=== PATIENT | female | born 1980 | race Caucasian/White ===

== ENCOUNTER 2017-08-08 11:05 | Day surgery (SDC) | payer MEDICAID ==
[~2017-08-08] VITALS: Ht 160 cm; Wt 96.2 kg
[~2017-08-08 11:05] MED LIST: ASPI81TA27 PO; METO25TA3 PO
[2017-08-08] MEDS ORDERED: LIDOCAINE VISCOUS 2% 15ML UD PO ONE (12:00)
[2017-08-08] MEDS ORDERED: diphenhdrAMINE HCL 50 MG/1 ML VL IV ONE (12:00)
[2017-08-08] MEDS ORDERED: fentaNYL CITRATE 100 MCG/2 ML VL IV ONE (12:00)
[2017-08-08] MEDS ORDERED: NALOXONE HCL 0.4 MG/ML VIAL IV ONE (12:00)
[2017-08-08] MEDS ORDERED: MIDAZOLAM HCL 1MG/1ML-2 ML VIAL IV ONE (12:00)
[2017-08-08] MEDS ORDERED: FLUMAZENIL 0.1 MG/ML INJ 10ML MDV IV ONE (12:00)
== END 2017-08-08 15:05 | disposition home or self-care (01) ==
LOC: CATH 11:05
PROVIDERS: ATTEND Internal Medicine
DX: I42.2 Other hypertrophic cardiomyopathy (principal); I34.0 Nonrheumatic mitral (valve) insufficiency; Z88.1 Allergy status to other antibiotic agents; E66.9 Obesity, unspecified; Z68.37 Body mass index [BMI] 37.0-37.9, adult; F10.99 Alcohol use, unspecified with unspecified alcohol-induced disorder; I10 Essential (primary) hypertension; E78.00 Pure hypercholesterolemia, unspecified; Z90.49 Acquired absence of other specified parts of digestive tract; Z98.51 Tubal ligation status; I50.9 Heart failure, unspecified
CPT/HCPCS: 36415; 84702; 93312; 99152; J2250